=== PATIENT | female | born 1965 | race Caucasian/White ===

== ENCOUNTER 2017-05-31 09:15 | Emergency (ER) | payer SELFPAY ==
[~2017-05-31] VITALS: Ht 175.3 cm; Wt 80.0 kg
[~2017-05-31 09:15] MED LIST: AUGMENTIN875TAB OR; LORTAB 5 OR; NO; PROZAC20 MG OR; ULTRAM50 M1 PO
[2017-05-31] MEDS ORDERED: MOTRIN400 MG PO (09:53)
[2017-05-31] MEDS ORDERED: HYDROCO/APAP1 TA9 PO (09:53)
[2017-05-31 10:07] VITALS: BP 155/100
== END 2017-05-31 10:18 | disposition home or self-care (01) | DRG 563 ==
LOC: ED 09:15
PROC: 2W3DX1Z Immobilization of Left Lower Arm using Splint (ICD-10-PCS; principal; 2017-05-31)
DX: S52.502A Unspecified fracture of the lower end of left radius, initial encounter for closed fracture (principal); W01.0XXA Fall on same level from slipping, tripping and stumbling without subsequent striking against object, initial encounter; Y93.49 Activity, other involving dancing and other rhythmic movements; Y92.29 Other specified public building as the place of occurrence of the external cause